=== PATIENT | female | born 1990 | race Caucasian/White ===

== ENCOUNTER 2019-10-30 14:09 | Emergency (ER) | payer OTHER ==
[~2019-10-30] VITALS: Ht 165.1 cm; Wt 54.4 kg
[~2019-10-30 14:09] MED LIST: ADDERALL 20 MG20 M1; BACTRIM DS TAB1 EACH PO; BIRTH CONTROL TABS; CIPRO250 M1 PO; DOXYCYCLINE 10100 M1 PO; HYDROCODON-ACE1 EAC7 PO; IBUPROFEN 800800 M1 PO; METHYLERGONOVI0.2 MG PO; NORCO 5-325 TA1 EAC1 PO; ONDANSETRON HCL4 M2 PO; ORTHO TRI-CYCL1 EACH PO; PAXIL20 MG PO; TRINATE TABLET1 TAB PO; ULTRAM 50MG TAB50 MG PO; VICODIN 5-5001 EACH PO; WELLBUTRIN SR150 MG
[2019-10-30 14:51] LABS: ABSOLUTE BASOPHILS 0.1 thou/uL (0.0-0.2); ABSOLUTE EOSINOPHILS 0.1 thou/uL (0.0-0.7); ABSOLUTE LYMPHOCYTES 2.7 thou/uL (0.8-5.3); ABSOLUTE MONOCYTES 0.6 thou/uL (0.0-1.2); ABSOLUTE NEUTROPHILS 4.9 thou/uL (1.6-8.1); BASOPHILS 0.8 %; EOSINOPHILS 1.8 %; HEMATOCRIT 40.5 % (37.0-47.0); HEMOGLOBIN 13.9 gm/dL (12.0-15.0); LYMPHOCYTES 32.5 %; MCH 30.6 pg (26.0-34.0); MCHC 34.3 g/dL (28.0-37.0); MCV 89.2 fL (80.0-100.0); MONOCYTES 6.7 %; MPV 7.3 fl. (7.2-11.1); NUCLEATED RBCS 0 /100WBC; PLATELET COUNT* 279 thou/uL (150-400); POLYS 58.2 %; RBC 4.54 mil/uL (4.20-5.00); RDW-CV 13.1 % (10.5-14.5); WBC 8.4 thou/uL (4.0-11.0)
[2019-10-30 15:00] LABS: CALCIUM 8.3 mg/dL (8.5-10.1); CREATININE 0.8 mg/dL (0.6-1.3); POTASSIUM 3.3 mmol/L (3.5-5.1)
[2019-10-30 15:01] LABS: PROTIME 10.7 Seconds (9.20-11.50)
[2019-10-30 15:05] LABS: ALBUMIN 3.9 g/dL (3.4-5.0); TOTAL BILIRUBIN 0.8 mg/dL (<0.1-1.0); TOTAL PROTEIN 6.6 g/dL (6.4-8.2)
[2019-10-30] MEDS ORDERED: ACYCLOVIR 400400 MG PO (15:20)
[2019-10-30] MEDS ORDERED: PREDNISONE 20 M20 M1 PO (15:20)
[2019-10-30 15:40] VITALS: BP 127/78
--- NOTE | 2019-10-31 14:53 | EKG ---
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 : 1990 Requested By: Steven Ann Order Number: [id number] MD: Vijay Forbes Measurements Intervals Check Rate: 68 P: 79 GA: 118 QRS: 87 QRSD: 93 T: 61 QT: 405 QTc: 431 Interpretive Statements Sinus rhythm left ventricular hypertrophy Borderline short GA interval Compared to ECG 04/28/2013 14:59:36 Sinus tachycardia no longer present Electronically Signed On 10-31-2019 14:52:26 CDT by Vijay Forbes [email or web address] <ELECTRONICALLY SIGNED> By: Vijay Forbes MD, [facility] 10/31/19 1452 1429 1429 Vijay Forbes MD, [facility] /EPI
== END 2019-10-30 15:44 | disposition home or self-care (01) ==
LOC: M.ERS 14:09
PROVIDERS: Family Medicine
DX: G51.0 Bell's palsy (principal); R20.2 Paresthesia of skin; G43.909 Migraine, unspecified, not intractable, without status migrainosus; Z79.899 Other long term (current) drug therapy

== ENCOUNTER → 2019-11-02 | Outpatient (CLI) | payer OTHER ==
[~2019-11-02] MED LIST changes: +ACYCLOVIR 400400 MG PO; +PREDNISONE 20 M20 M1 PO
== END ==
LOC: M.MRI 07:04
PROVIDERS: ATTEND Internal Medicine
DX: H57.02 Anisocoria (principal); R20.0 Anesthesia of skin